=== PATIENT | male | born 1995 | race Caucasian/White ===

== ENCOUNTER 2022-03-22 06:59 | Emergency (ER) | payer OTHER | END 2022-03-22 07:30 | disposition home or self-care (01) | LOC: JD.ED 06:59 | DX: S40.022A Contusion of left upper arm, initial encounter (principal); V89.2XXA Person injured in unspecified motor-vehicle accident, traffic, initial encounter; Y92.410 Unspecified street and highway as the place of occurrence of the external cause | CPT/HCPCS: 99284 ==

== ENCOUNTER 2023-05-27 16:27 | Emergency (ER) | payer BC | END 2023-05-27 17:12 | disposition home or self-care (01) | LOC: JD.ED 16:27 | DX: G51.0 Bell's palsy (principal); H60.501 Unspecified acute noninfective otitis externa, right ear; Z79.899 Other long term (current) drug therapy | CPT/HCPCS: 82947; 99283 ==